=== PATIENT | male | born 1965 | race Hispanic/Latino ===

== ENCOUNTER 2018-01-02 13:50 | Inpatient (IN) | payer MEDICAID ==
--- NOTE | 2018-01-02 14:13 | RAD REPORT ---
EXAM DESCRIPTION: CT - Ct Stroke Brain Wo Cont - 01/02/2018 2:06 pm CLINICAL HISTORY: Left-sided numbness COMPARISON: None. TECHNIQUE: Computed axial tomography of the head was obtained. IV contrast was not requested. All CT scans are performed using dose optimization technique as appropriate and may include automated exposure control or mA/KV adjustment according to patient size. FINDINGS: An intracranial bleed is not seen . The ventricles are normal in caliber. No extra-axial fluid collection is noted. 2 centimeter low-density areas present within the right basal ganglia/right internal capsule Fluid within the sinuses/ mastoids is not seen. IMPRESSION: A 2 centimeter low-density area within the right basal ganglia/right internal capsule pr obably represents a subacute or chronic infarct. Comparison with prior imaging would be helpful. Exam was discussed with Dr. Donovan 2:05 p.m. January 02, 2018.
[2018-01-02 14:15] LABS: Absolute Lymphocytes (CBC) 2.5 K/uL (0.7-4.9); Absolute Monocytes 0.5 K/uL (0.1-1.3); Absolute Neutrophil 3.7 K/uL (1.8-8.0); Eosinophils % 0.5 % (0-4.4); Hematocrit 42.8 % (39.6-49.0); Lymphocytes % 36.5 % (15.3-44.8); MCH 29.7 pg (27.0-35.0); MCV 86.6 fL (80-100); MPV 8.1 fL (7.6-11.3); Monocytes % 7.7 % (3.3-12.3); RBC Red Blood Cell Count 4.95 M/uL (4.33-5.43)
[2018-01-02 14:27] LABS: BUN Blood Urea Nitrogen 12 mg/dL (7-18); Bicarbonate 26 mmol/L (21-32); Glucose Level 108 mg/dL (74-106); Potassium 3.7 mmol/L (3.5-5.1); Sodium Level 139 mmol/L (136-145)
[2018-01-02 14:28] LABS: Protime INR 1.15
[2018-01-02 14:31] LABS: Urine Blood NEGATIVE (NEG); Urine Glucose NEGATIVE (NEG); Urine Protein NEGATIVE (NEG); Urine Specific Gravity <1.005 (1.005-1.030); Urine pH 6.5 (5.0-7.0)
--- NOTE | 2018-01-02 15:04 | RAD REPORT ---
EXAM DESCRIPTION: Yaya Single View01/02/2018 2:16 pm CLINICAL HISTORY: Chest pain COMPARISON: none FINDINGS: The lungs appear clear of acute infiltrate. The heart is normal size. Old rib fractures a re present IMPRESSION: No acute abnormalities displayed
[2018-01-02] MEDS ORDERED: ACETAMINOPHEN 500 MG TAB PO PRN (15:08)
[2018-01-02] MEDS ORDERED: LORazepam 2 MG/ML VIAL IV PRN (15:08)
[2018-01-02] MEDS ORDERED: ONDANSETRON 4 MG/2 ML VIAL IV PRN (15:08)
--- NOTE | 2018-01-02 15:24 | P.HP ---
Certification for Inpatient Patient admitted to: Inpatient With expected LOS: >2 Midnights Patient will require the following post-hospital care: Rehabilitation Practitioner: I am a practitioner with admitting privileges, knowledge of patient current condition, hospital course, and medical plan of care. Services: Services provided to patient in accordance with Admission requirements found in Title 42 Section 412.3 of the Code of Federal Regulations Patient History Date of Service: 01/02/18 Primary Care Provider: Marshall Moise Reason for admission: Left upper extremity weakness History of Present Illness: 52-year-old male presented to emergency room with left upper extremity weakness. Patient has history of previous CVA about 3 months ago in September of 2017. At that time he had left upper extremity weakness with slurred speech. He was seen at [facility] for this. He was placed on medication including aspirin , Plavix, simvastatin and lisinopril. Patient has history of alcohol and tobacco abuse. Patient reported weakness to the left upper extremity today. Onset was very quick. He denied any slurred speech. Patient denied any chest pain, shortness breath, he headaches her fever. Patient came to the ER for further evaluation. In ER patient evaluated. The patient had left upper extremity weakness but somewhat improved. CT scan showed 3 cm right basal and internal capsule CVA at likely chronic versus subacute. Code stroke was called. Due to the history of CVA in the past patient was not a candidate for tPA. Patient was stabilize. Blood pressure slightly elevated. Patient admitted alcohol use earlier today. Patient reports some depression as well. Patient admitted for further treatment. When I saw the patient ER, he appeared stable. was at bedside. Patient reports compliance with medication. Patient reports some depression. He uses alcohol to help with this. He does not believe that he has a problem with alcohol. Home medications list reviewed: Yes - Past Medical/Surgical History Diabetic: No -: CVA, September 2017 -: Hypertension -: Hyperlipidemia -: Alcohol use -: Tobacco abuse -: Hernia repair Psychosocial/ Personal History: Patient is . He has 3 children. 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 - Family History Father -: Heart disease - Social History Smoking Status: Light Tobacco smoker (1-9 cigarettes/day) Counseled patient to stop smoking for: less than 10 minutes Smoking therapy provided: Yes Patient receptive to therapy: Yes Alcohol use: Yes CD- Drugs: No Caffeine use: Yes Place of Residence: Home Review of Systems General: Weakness, As per HPI Eyes: Unremarkable ENT: Unremarkable Respiratory: Unremarkable Cardiovascular: Unremarkable Gastrointestinal: Unremarkable Genitourinary: Unremarkable Musculoskeletal: As per HPI Integumentary: Unremarkable Neurological: As per HPI Lymphatics: Unremarkable Physical Examination - Physical Exam General: Alert, In no apparent distress, Oriented x3, Cooperative HEENT: Atraumatic, Normocephalic, PERRLA, Mucous membr. moist/pink, EOMI Neck: Supple Respiratory: Clear to auscultation bilaterally, Normal air movement Cardiovascular: Normal pulses, Regular rate/rhythm Gastrointestinal: Normal bowel sounds, Soft and benign, Non-distended, No ascites, No tenderness, No masses, No rebound, No guarding Musculoskeletal: No erythema, No tenderness, No warmth Integumentary: No tenderness/swelling, No erythema, No warmth, No cyanosis Neurological: Normal speech, Normal tone, Normal affect, Abnormal strength (4/5 weakness to the left upper extremity), Abnormal sensation (Mild paresthesias) - Studies Laboratory Data (last 24 hrs) 01/02/18 14:08: PT 13.6 H, INR 1.15, APTT 40.5 H 01/02/18 14:08: WBC 6.9, Hgb 14.7, Hct 42.8, Plt Count 276 01/02/18 14:08: Sodium 139, Potassium 3.7, BUN 12, Creatinine 0.70, Glucose 108 H Assessment and Plan - Plan Impression: Left upper extremity weakness and paresthesia secondary to 2 cm right basal ganglia and internal capsule subacute CVA Hypertension, on controlled Hyperlipidemia Alcohol abuse Tobacco abuse Depression Plan: Left upper extremity weakness and paresthesia secondary to 2 cm right basal ganglia and internal capsule subacute CVA: Code stroke was called. ER spoke to neurology at [facility]. Patient not a candidate for tPA. Therefore patient will be admitted to the hospital for treatment. Will continue with aspirin 81 mg daily, Plavix 75 mg daily, , folic acid daily, and Lipitor 80 mg daily. Will start DVT prophylaxis with Lovenox. Will consult neurology for further recommendation. Will monitor closely. Will continue with physical therapy. Patient may be a good candidate for inpatient rehab. Will continue to reassess and monitor closely. Hypertension, on controlled: Will start low-dose lisinopril. Will maintain blood pressures around 150-160 systolic. Hyperlipidemia: Lipitor started. Alcohol abuse: Will start thiamine. Will provide medication for anxiety as needed. Will check alcohol level and urine drug screen. Tobacco abuse: Tobacco cessation addressed in detail. Depression: Patient appears depressed. Will start Celexa. Discharge Plan: Home Plan to discharge in: 72 Hours - Advance Directives Does patient have a Living Will: No Does patient have a Durable POA for Healthcare: Yes - Code Status/Comfort Care Code Status Assessed: Yes (Patient full code.) Time Spent Managing Pts Care (In Minutes): 55
[2018-01-02 15:52] LABS: Barbiturates NEGATIVE (NEGATIVE); Benzodiazepines NEGATIVE (NEGATIVE); Cocaine NEGATIVE (NEGATIVE); METHAMPHETAM NEGATIVE (NEGATIVE); Methadone NEGATIVE (NEGATIVE); Opiates NEGATIVE (NEGATIVE); Phencyclidine NEGATIVE (NEGATIVE); THC Cannibis NEGATIVE (NEGATIVE)
--- NOTE | 2018-01-02 15:57 | EDPHYS ---
Physician Documentation [facility] Name: Dheeraj Fox Age: 52 yrs Sex: Male : 1965 Arrival Date: 01/02/2018 Time: 13:51 Bed 6 Private MD: ED Physician Mikey Donovan HPI: 01/02 14:04 This 52 yrs old Male presents to ER via Unassigned with complaints of Left kdr sided weakness. 14:04 The patient was seen by me immediately upon arrival and prior to triage registration. kdr Historical: - Allergies: 14:15 No Known Allergies; ph - Home Meds: 14:15 amlodipine oral [Active]; atorvastatin oral oral [Active]; Aspirin Oral [Active]; ph Plavix Oral [Active]; - PMHx: 14:15 CVA; Hyperlipidemia; Hypertension; ph - Immunization history:: Adult Immunizations. - Social history:: Smoking status: Patient uses alcohol, occasionally. pt states "i drank a few beers today", when asked how many pt states "2". - Ebola Screening: : Patient denies travel to an Ebola-affected area in the 21 days before illness onset. ROS: 15:56 Constitutional: Negative for fever, chills, and weight loss, Eyes: Negative for injury, kdr pain, redness, and discharge, Neck: Negative for injury, pain, and swelling, Cardiovascular: Negative for chest pain, palpitations, and edema, Respiratory: Negative for shortness of breath, cough, wheezing, and pleuritic chest pain, Abdomen/GI: Negative for abdominal pain, nausea, vomiting, diarrhea, and constipation, Back: Negative for injury and pain, : Negative for injury, bleeding, discharge, and swelling, MS/Extremity: Negative for injury and deformity, Skin: Negative for injury, rash, and discoloration, Psych: Negative for depression, anxiety, suicide ideation, homicidal ideation, and hallucinations, Allergy/Immunology: Negative for hives, rash, and allergies, Endocrine: Negative for neck swelling, polydipsia, polyuria, polyphagia, and marked weight changes, Hematologic/Lymphatic: Negative for swollen nodes, abnormal bleeding, and unusual bruising. 15:56 Neuro: Positive for weakness. Exam: 15:56 Constitutional: This is a well developed, well nourished patient who is awake, alert, kdr and in no acute distress. Head/Face: Normocephalic, atraumatic. Eyes: Pupils equal round and reactive to light, extra-ocular motions intact. Lids and lashes normal. Conjunctiva and sclera are non-icteric and not injected. Cornea within normal limits. Periorbital areas with no swelling, redness, or edema. Neck: Trachea midline, no thyromegaly or masses palpated, and no cervical lymphadenopathy. Supple, full range of motion without nuchal rigidity, or vertebral point tenderness. No Meningismus. Chest/axilla: Normal chest wall appearance and motion. Nontender with no deformity. No lesions are appreciated. Cardiovascular: Regular rate and rhythm with a normal S1 and S2. No gallops, murmurs, or rubs. Normal PMI, no JVD. No pulse deficits. Respiratory: Lungs have equal breath sounds bilaterally, clear to auscultation and percussion. No rales, rhonchi or wheezes noted. No increased work of breathing, no retractions or nasal flaring. Abdomen/GI: Soft, non-tender, with normal bowel sounds. No distension or tympany. No guarding or rebound. No evidence of tenderness throughout. Back: No spinal tenderness. No costovertebral tenderness. Full range of motion. Skin: Warm, dry with normal turgor. Normal color with no rashes, no lesions, and no evidence of cellulitis. MS/ Extremity: Pulses equal, no cyanosis. Neurovascular intact. Full, normal range of motion. Psych: Awake, alert, with orientation to person, place and time. Behavior, mood, and affect are within normal limits. 15:56 Neuro: Orientation: is normal, Mentation: is normal, Memory: is normal, Cranial nerves: no acute changes, Motor: strength is 5/5 in the right arm and right leg, strength is 4/5 in the left arm and left leg, Sensation: is normal, Gait: not tested. Deep tendon reflexes are 1 (trace) + in the right patellar, right Achilles, left patellar and left Achilles, seizure activity, is not displayed by the patient, Abnormal movements: Vital Signs: 14:09 BP 140 / 90; Pulse 95; Resp 20; Temp 98.1(O); Pulse Ox 98% on R/A; Weight 72.57 kg (R); tw2 15:01 BP 127 / 94; Pulse 83; Resp 17; Pulse Ox 98% on R/A; tw2 15:50 BP 118 / 79; Pulse 84; Resp 16; Pulse Ox 95% on R/A; tw2 16:46 BP 127 / 84; Pulse 88; Resp 17; Pulse Ox 100% on R/A; tw2 NIH Stroke Scale Scores: 13:50 NIHSS Score: 6 tw2 14:04 NIHSS Score: 6 kdr MDM: 15:56 Patient medically screened. kdr 15:56 Data reviewed: vital signs, nurses notes, old medical records, radiologic studies. kdr Counseling: I had a detailed discussion with the patient and/or guardian regarding: the historical points, exam findings, and any diagnostic results supporting the discharge/admit diagnosis, lab results, radiology results, the need for further work-up and treatment in the hospital. ED course: D/w neurology at [facility]. Since he had a CVA in the last two months, the patient is not a candidate for tPA. Will D/w here to keep the patient here for medical management. 01/02 13:58 Order name: Basic Metabolic Panel ph 01/02 13:58 Order name: CBC with Diff ph 01/02 13:58 Order name: Protime (+inr) ph 01/02 13:58 Order name: Ptt, Activated ph 01/02 14:01 Order name: Urine Dipstick--Ancillary (enter results) em1 01/02 14:43 Order name: ETOH Level em1 01/02 13:58 Order name: CT Stroke Brain w/o Contrast ph 01/02 13:58 Order name: Stroke CXR 1 View ph 01/02 15:19 Order name: Echo with Doppler EDMS 01/02 15:19 Order name: Urine Drug Screen EDMS 01/02 15:19 Order name: T4,Total EDMS 01/02 15:19 Order name: Thyroid Stimulating Hormone EDMS 01/02 15:19 Order name: Stroke Protocol EDNV 01/02 15:19 Order name: Chest Pa And Lat (2 Views) EDMS 01/02 13:58 Order name: EKG; Complete Time: 13:59 ph 01/02 13:58 Order name: Accucheck; Complete Time: 14:07 ph 01/02 13:58 Order name: Cardiac monitoring; Complete Time: 14:07 ph 01/02 13:58 Order name: EKG - Nurse/Tech; Complete Time: 14:07 ph 01/02 13:58 Order name: IV Saline Lock; Complete Time: 14:07 ph 01/02 13:58 Order name: Labs collected and sent; Complete Time: 14:07 ph 01/02 13:58 Order name: NPO; Complete Time: 14:07 ph 01/02 13:58 Order name: O2 Per Protocol; Complete Time: 14:08 ph 01/02 13:58 Order name: O2 Sat Monitoring; Complete Time: 14:08 ph 01/02 15:19 Order name: CONS Rehab Consult [facility] 01/02 15:19 Order name: Physical Therapy Consult [facility] 01/02 15:19 Order name: Social Service Consult [facility] 01/02 15:19 Order name: Heart Healthy [facility] 01/02 15:19 Order name: NPO [facility] 01/02 15:19 Order name: EKG Electrocardiogram [facility] 01/02 15:19 Order name: Carotid Artery Bilateral [facility] 01/02 13:58 Order name: Stroke Swallow Screen; Complete Time: 14:08 ph 01/02 14:01 Order name: Urine Dipstick-Ancillary (obtain specimen); Complete Time: 14:01 em1 Administered Medications: No medications were administered Point of Care Testing: Blood Glucose: 13:54 Blood Glucose: 82 mg/dL; tw2 13:54 per SHRUTI Mckeon tw2 Ranges: Critical Glucose Levels:Adult <50 mg/dl or >400 mg/dl <40 mg/dl or >180 mg/dl Disposition: 01/02/18 15:56 Hospitalization ordered by Adeel Thomas for Inpatient Admission. Preliminary diagnosis is CVA: Left sided weakness Upper > Lower. - Bed requested for Telemetry/MedSurg (Inpatient). - Status is Inpatient Admission. tw2 - Condition is Serious. - Problem is new. - Symptoms have improved. UTI on Admission? No NIH Stroke Scale - NIH Stroke Score Date: 01/02/2018 Time: 13:50 Total Score = 6 1a. Level of Consciousness (LOC) - 0(Alert) 1b. Level of Consciousness (LOC) (Year \\T\\ Age) - 0(Both) 1c. LOC Commands (Open \\T\\ Closes Eyes/Concrete Rod Buster) - 0(Both) 2. Best Gaze (Lateral Gaze Paresis) - 0(Normal) 3. Visual Field Loss - 0(No visual loss) 4. Facial Palsy - 0(Normal) 5a. Left Arm: Motor (10-second hold) - 2(Drift, some effort against gravity) 5b. Right Arm: Motor (10-second hold) - 0(No drift) 6a. Left Leg: Motor (5-second hold - always test supine) - 2(Drift, some effort against gravity) 6b. Right Leg: Motor (5-second hold - always test supine) - 0(No drift) 7. Limb Ataxia (finger/nose \\T\\ heel/morales - test with eyes open) - 2(Present in two limbs) 8. Sensory Loss (pinprick arms/legs/face) - 0(Normal) 9. Best Language: Aphasia (description/naming/reading) - 0(No aphasia) 10. Dysarthria (speech clarity - read or repeat words) - 0(Normal) 11. Extinction and Inattention (visual/tactile/auditory/spatial/personal) - 0(No abnormality) Initials: tw2 NIH Stroke Scale - NIH Stroke Score Date: 01/02/2018 Time: 14:04 Total Score = 6 1a. Level of Consciousness (LOC) - 0(Alert) 1b. Level of Consciousness (LOC) (Year \\T\\ Age) - 0(Both) 1c. LOC Commands (Open \\T\\ Closes Eyes/Concrete Rod Buster) - 0(Both) 2. Best Gaze (Lateral Gaze Paresis) - 0(Normal) 3. Visual Field Loss - 0(No visual loss) 4. Facial Palsy - 0(Normal) 5a. Left Arm: Motor (10-second hold) - 2(Drift, some effort against gravity) 5b. Right Arm: Motor (10-second hold) - 0(No drift) 6a. Left Leg: Motor (5-second hold - always test supine) - 2(Drift, some effort against gravity) 6b. Right Leg: Motor (5-second hold - always test supine) - 0(No drift) 7. Limb Ataxia (finger/nose \\T\\ heel/morales - test with eyes open) - 2(Present in two limbs) 8. Sensory Loss (pinprick arms/legs/face) - 0(Normal) 9. Best Language: Aphasia (description/naming/reading) - 0(No aphasia) 10. Dysarthria (speech clarity - read or repeat words) - 0(Normal) 11. Extinction and Inattention (visual/tactile/auditory/spatial/personal) - 0(No abnormality) Initials: kdr Signatures: Dispatcher [employer] Alycia Rm RN RN Mikey Donovan MD MD [facility] Josué Dennis em1 Linda Hernandes RN RN [facility], [facility] RN RN tw2 Corrections: (The following items were deleted from the chart) 16:09 15:56 Hospitalization Ordered by Adeel Thomas DO for Inpatient Admission. dw Preliminary diagnosis is CVA: Left sided weakness Upper > Lower. Bed requested for Telemetry/MedSurg (Inpatient). Status is Inpatient Admission. Condition is Serious. Problem is new. Symptoms have improved. UTI on Admission? No. kdr 17:00 16:09 01/02/2018 15:56 Hospitalization Ordered by Adeel Thomas DO for tw2 Inpatient Admission. Preliminary diagnosis is CVA: Left sided weakness Upper > Lower. Bed requested for Telemetry/MedSurg (Inpatient). Status is Inpatient Admission. Condition is Serious. Problem is new. Symptoms have improved. UTI on Admission? No. dw
--- NOTE | 2018-01-02 15:57 | ER ---
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 Pt admits to drinking regularly and states that he had a few beers today. Transition of care: patient was not received from another setting of care. Onset of symptoms was January 02, 2018. Risk Assessment: Do you want to hurt yourself or someone else? Patient reports no desire to harm self or others. Initial Sepsis Screen: Does the patient meet any 2 criteria? No. Patient's initial sepsis screen is negative. Does the patient have a suspected source of infection? No. Patient's initial sepsis screen is negative. Care prior to arrival: IV initiated. 18 GA, in the right antecubital area, Glucose check: 115. 13:50 Method Of Arrival: EMS: [facility] ph 13:50 Acuity: STEFAN 2 ph Historical: - Allergies: 14:15 No Known Allergies; ph - Home Meds: 14:15 amlodipine oral [Active]; atorvastatin oral oral [Active]; Aspirin Oral [Active]; ph Plavix Oral [Active]; - PMHx: 14:15 CVA; Hyperlipidemia; Hypertension; ph - Immunization history:: Adult Immunizations. - Social history:: Smoking status: Patient uses alcohol, occasionally. pt states "i drank a few beers today", when asked how many pt states "2". - Ebola Screening: : Patient denies travel to an Ebola-affected area in the 21 days before illness onset. Screenin:06 Abuse screen: Denies threats or abuse. Nutritional screening: No deficits noted. tw2 Tuberculosis screening: No symptoms or risk factors identified. Patient has been NPO before screening. The patient is alert, able to follow commands. The patient does not exhibit slurred or garbled speech The patient is not exhibiting difficulty speaking. The patient does not exhibit difficulty understanding words. The patient is able to swallow own secretions with no drooling or need for suction. Patient tolerated one teaspoon of water. No drooling, immediate coughing, gurgling, or clearing of the throat was noted. The patient tolerated 90mL of water. No drooling, immediate coughing, gurgling, or clearing of the throat was noted. The patient passed the bedside swallow screening. Oral medications may be given as ordered. Contact Physician for further diet orders. Provider notified of bedside swallow screening results: Mikey Donovan MD. Fall Risk None identified. Assessment: 13:50 Reassessment: Pt arrived from EMS, pt LAST KNOWN NORMAL 1250pm TODAY, Dr. Donovan at tw2 bedside. 13:51 Reassessment: CODE STROKE CALLED OVERHEAD. tw2 13:54 Reassessment: pt taken via w/c to CT with SHRUTI Mckeon. tw2 14:05 General: Appears in no apparent distress. Behavior is cooperative, crying, pt was tw2 crying when asked to move his left arm, pt states "look at me im falling apart". Pain: Denies pain. Neuro: Level of Consciousness is awake, alert, obeys commands, Oriented to person, place, time, situation. Cardiovascular: Denies chest pain, shortness of breath, Heart tones S1 S2 Capillary refill < 3 seconds Patient's skin is warm and dry. Respiratory: Airway is patent Respiratory effort is even, unlabored, Respiratory pattern is regular, symmetrical, Breath sounds are clear bilaterally. GI: No signs and/or symptoms were reported involving the gastrointestinal system. : No signs and/or symptoms were reported regarding the genitourinary system. EENT: No signs and/or symptoms were reported regarding the EENT system. Derm: No signs and/or symptoms reported regarding the dermatologic system. Musculoskeletal: Range of motion: limited in left shoulder and left elbow Reports weakness in left arm. 14:27 Reassessment: Dr. Thomas at bedside at this time. tw2 14:37 Reassessment: pts spouse at bedside at this time talking to Dr. Thomas at this time. tw2 15:01 Reassessment: Patient appears in no apparent distress at this time. No changes from tw2 previously documented assessment. Patient and/or family updated on plan of care and expected duration. Pain level reassessed. 15:50 Reassessment: Patient appears in no apparent distress at this time. No changes from tw2 previously documented assessment. Patient and/or family updated on plan of care and expected duration. Pain level reassessed. pt appears to be sleeping at this time. 15:56 Reassessment: tPA CONTRAINDICATED d/t recent CVA hx. tw2 16:50 Reassessment: Patient appears in no apparent distress at this time. No changes from tw2 previously documented assessment. Patient and/or family updated on plan of care and expected duration. Pain level reassessed. Vital Signs: 14:09 BP 140 / 90; Pulse 95; Resp 20; Temp 98.1(O); Pulse Ox 98% on R/A; Weight 72.57 kg (R); tw2 15:01 BP 127 / 94; Pulse 83; Resp 17; Pulse Ox 98% on R/A; tw2 15:50 BP 118 / 79; Pulse 84; Resp 16; Pulse Ox 95% on R/A; tw2 16:46 BP 127 / 84; Pulse 88; Resp 17; Pulse Ox 100% on R/A; tw2 NIH Stroke Scale Scores: 13:50 NIHSS Score: 6 tw2 14:04 NIHSS Score: 6 kdr ED Course: 13:51 Patient arrived in ED. em1 13:54 Promise Samuel, SHRUTI is Primary Nurse. tw2 14:03 Mikey Donovan MD is Attending Physician. kdr 14:05 Inserted saline lock: 20 gauge in left forearm, using aseptic technique. Blood tw2 collected. 14:05 Initial lab(s) drawn, by tx, sent to lab. tw2 14:05 Placed in gown. Bed in low position. Side rails up X2. traffic monitor specialist on. Pulse ox on. tw2 NIBP on. Warm blanket given. 14:06 CT Stroke Brain w/o Contrast In Process Unspecified. EDMS 14:09 X-ray(s) taken. tw2 14:11 EKG done. Maintain EMS IV. Dressing intact. Good blood return noted. Site clean \\T\\ dry. tw2 Gauge \\T\\ site: 18 G RIGHT AC. 14:13 Triage completed. ph 14:13 Stroke CXR 1 View In Process Unspecified. EDMS 14:15 Arm band placed on right wrist. ph 14:17 EKG done, by ED staff, reviewed by Mikey Donovan MD. dh3 15:54 Adeel Thomas DO is Hospitalizing Provider. kdr 16:47 No provider procedures requiring assistance completed. Patient admitted, IV remains in tw2 place. Administered Medications: No medications were administered Point of Care Testing: Blood Glucose: 13:54 Blood Glucose: 82 mg/dL; tw2 13:54 per SHRUTI Mckeon tw2 Ranges: Output: 14:17 Urine: 350ml (Voided); Total: 350ml. tw2 15:05 Urine: 650ml (Voided); Total: 1000ml. tw2 Outcome: 15:56 Decision to Hospitalize by Provider. kdr 16:48 Admitted to Med/surg accompanied by tech, via wheelchair, room 430, with chart, Report tw2 called to SHRUTI Redd 16:48 Condition: stable 16:48 Instructed on the need for admit. 17:00 Patient left the ED. tw2 NIH Stroke Scale - NIH Stroke Score Date: 01/02/2018 Time: 13:50 Total Score = 6 1a. Level of Consciousness (LOC) - 0(Alert) 1b. Level of Consciousness (LOC) (Year \\T\\ Age) - 0(Both) 1c. LOC Commands (Open \\T\\ Closes Eyes/Jewelry Maker) - 0(Both) 2. Best Gaze (Lateral Gaze Paresis) - 0(Normal) 3. Visual Field Loss - 0(No visual loss) 4. Facial Palsy - 0(Normal) 5a. Left Arm: Motor (10-second hold) - 2(Drift, some effort against gravity) 5b. Right Arm: Motor (10-second hold) - 0(No drift) 6a. Left Leg: Motor (5-second hold - always test supine) - 2(Drift, some effort against gravity) 6b. Right Leg: Motor (5-second hold - always test supine) - 0(No drift) 7. Limb Ataxia (finger/nose \\T\\ heel/morales - test with eyes open) - 2(Present in two limbs) 8. Sensory Loss (pinprick arms/legs/face) - 0(Normal) 9. Best Language: Aphasia (description/naming/reading) - 0(No aphasia) 10. Dysarthria (speech clarity - read or repeat words) - 0(Normal) 11. Extinction and Inattention (visual/tactile/auditory/spatial/personal) - 0(No abnormality) Initials: tw2 NIH Stroke Scale - NIH Stroke Score Date: 01/02/2018 Time: 14:04 Total Score = 6 1a. Level of Consciousness (LOC) - 0(Alert) 1b. Level of Consciousness (LOC) (Year \\T\\ Age) - 0(Both) 1c. LOC Commands (Open \\T\\ Closes Eyes/Jewelry Maker) - 0(Both) 2. Best Gaze (Lateral Gaze Paresis) - 0(Normal) 3. Visual Field Loss - 0(No visual loss) 4. Facial Palsy - 0(Normal) 5a. Left Arm: Motor (10-second hold) - 2(Drift, some effort against gravity) 5b. Right Arm: Motor (10-second hold) - 0(No drift) 6a. Left Leg: Motor (5-second hold - always test supine) - 2(Drift, some effort against gravity) 6b. Right Leg: Motor (5-second hold - always test supine) - 0(No drift) 7. Limb Ataxia (finger/nose \\T\\ heel/morales - test with eyes open) - 2(Present in two limbs) 8. Sensory Loss (pinprick arms/legs/face) - 0(Normal) 9. Best Language: Aphasia (description/naming/reading) - 0(No aphasia) 10. Dysarthria (speech clarity - read or repeat words) - 0(Normal) 11. Extinction and Inattention (visual/tactile/auditory/spatial/personal) - 0(No abnormality) Initials: kdr Signatures: Dispatcher [employer] EDMS Mikey Donovan MD MD kdr Josué Dennis em1 Linda Hernandes RN RN Promise Smauel RN RN tw2 Stephanie Ahuja 3 Corrections: (The following items were deleted from the chart) 16:47 14:09 BP 140 / 90; Pulse 95bpm; Resp 20bpm; Pulse Ox 98% RA; 72.57 kg Reported; tw2 tw2
[2018-01-02] MEDS ORDERED: ENOXAPARIN 40 MG/0.4 ML SQ SCH (16:00)
[2018-01-02] MEDS ORDERED: NA CHLORIDE 0.9% 1,000 ML IV SCH (16:00)
[2018-01-02 16:02] LABS: T4,Total 7.5 ug/dL (4.5-12.1); Thyroid Stimulating Hormone 2.56 uIU/mL (0.360-3.740)
[2018-01-02] MEDS ORDERED: ATORVASTATIN 80 MG TAB PO SCH (21:00)
--- NOTE | 2018-01-03 06:07 | EKG ---
Test Date: 2018-01-02 Test Time: 14:16:35 Consultant: MARCELINA MEASUREMENT RESULTS: Intervals: Rate: 88 AL: 170 QRSD: 88 QT: 372 QTc: 450 Friend: P: 37 AL: 170 QRS: -29 T: 68 INTERPRETIVE STATEMENTS: Normal sinus rhythm Normal ECG Compared to ECG 11/28/1997 20:39:00 Sinus tachycardia no longer present ST (T wave) deviation no longer present Electronically Signed On 01-03-18 06:07:01 [employer] by Juan Francisco Thomas
[2018-01-03] MEDS ORDERED: LISINOPRIL 5 MG TAB PO SCH (09:00)
[2018-01-03] MEDS ORDERED: THIAMINE HCL 100 MG TABLET PO SCH (09:00)
[2018-01-03] MEDS ORDERED: ASPIRIN EC 81 MG TAB PO SCH (09:00)
[2018-01-03] MEDS ORDERED: CLOPIDOGREL 75 MG TABLET PO SCH (09:00)
[2018-01-03] MEDS ORDERED: FOLIC ACID 1 MG TABLET PO SCH (09:00)
[2018-01-03] MEDS ORDERED: CITALOPRAM 10 MG TABLET PO SCH (09:00)
== END 2018-01-02 18:55 | disposition left against medical advice (07) | DRG 65 ==
LOC: ER 13:50 → ERHOLD 15:08 → 4TH 16:50
PROVIDERS: ADMIT Family Medicine; ATTEND Family Medicine
DX: I63.9 Cerebral infarction, unspecified (principal); G81.94 Hemiplegia, unspecified affecting left nondominant side; I10 Essential (primary) hypertension; E78.5 Hyperlipidemia, unspecified; F10.10 Alcohol abuse, uncomplicated; F32.9 Major depressive disorder, single episode, unspecified; F17.210 Nicotine dependence, cigarettes, uncomplicated
CPT/HCPCS: 36415; 70450; 71045; 80048; 80307; 80320; 81003; 84436; 84443; 85025; 85610; 85730; 93005; 99285; J1650; J2405; J7030